=== PATIENT | female | born 1960 | race Caucasian/White ===

== ENCOUNTER 2020-11-02 22:04 | Inpatient (IN) | payer MEDICAID ==
[~2020-11-02] VITALS: Ht 165.1 cm; Wt 68.9 kg
[~2020-11-02 22:04] MED LIST: LEVE100020 PO; QUET25TA5 PO
[2020-11-02] MEDS ORDERED: ONDANSETRON ODT 4 MG PO PRN (23:00)
[2020-11-02] MEDS ORDERED: POLYETHYLENE GLYCOL 17 GM PACKET PO PRN (23:00)
[2020-11-02] MEDS ORDERED: ACETAMINOPHEN 325 MG TABLET PO PRN (23:00)
[2020-11-02] MEDS ORDERED: BISACODYL 10 MG SUPP PR PRN (23:00)
[2020-11-02] MEDS ORDERED: DOCUSATE 100 MG CAPSULE PO PRN (23:00)
[2020-11-03 01:00] VITALS: BP 130/79
[2020-11-03 01:28] VITALS: BP 130/79
[2020-11-03] MEDS ORDERED: PLEASE ENTER HEIGHT AND WEIGHT MC SCH (01:30)
[2020-11-03] MEDS ORDERED: QUETIAPINE 200 MG TABLET PO ONE (02:00)
[2020-11-03] MEDS ORDERED: NICOTINE 21 MG/24 HR PATCH.TD24 TD SCH (04:00)
[2020-11-03] MEDS ORDERED: QUET200T4 PO (04:36)
[2020-11-03] MEDS ORDERED: LORA-446 PO (04:36)
[2020-11-03] MEDS ORDERED: BUPR1FIL PO (04:36)
[2020-11-03] MEDS ORDERED: QUET400T4 PO (04:36)
[2020-11-03] MEDS ORDERED: ALPR1TAB2 PO (04:36)
[2020-11-03 06:07] LABS: CHOL/HDL RATIO 2.6; FREE T4 (FREE THYROXINE) 0.72 ng/dL (0.76-1.46); LDL/HDL RATIO 1.3 (0.5-3.0)
[2020-11-03 07:35] VITALS: BP 135/87
[2020-11-03] MEDS: LORazepam 1MG TABLET PO PRN (08:43)
[2020-11-03] MEDS: NICOTINE 21 MG/24 HR PATCH.TD24 TD SCH (08:43)
[2020-11-03] MEDS: QUETIAPINE 100MG TABLET PO SCH ×2 (08:43→20:54)
[2020-11-03] MEDS: FOLIC ACID 1 MG TABLET PO SCH (08:43)
[2020-11-03] MEDS: THIAMINE 100MG TABLET PO SCH (08:43)
[2020-11-03] MEDS: BUPRENORPHINE/NALOXONE 2-0.5MG SL PRN (15:57)
[2020-11-03 19:39] VITALS: BP 143/88
[2020-11-03] MEDS: PRAZOSIN 1 MG CAPSULE PO SCH (20:56)
[2020-11-03] MEDS ORDERED: QUETIAPINE 100MG TABLET PO SCH (21:00)
[2020-11-03] MEDS ORDERED: PRAZOSIN 2 MG CAPSULE PO SCH (21:00)
[2020-11-04 07:15] VITALS: BP 146/98
[2020-11-04] MEDS: NICOTINE 21 MG/24 HR PATCH.TD24 TD SCH (08:16)
[2020-11-04] MEDS: THIAMINE 100MG TABLET PO SCH (08:17)
[2020-11-04] MEDS: SERTRALINE 50MG TABLET PO SCH (08:17)
[2020-11-04] MEDS: LORazepam 1MG TABLET PO PRN ×3 (08:17→20:41)
[2020-11-04] MEDS: QUETIAPINE 100MG TABLET PO SCH ×2 (08:17→20:40)
[2020-11-04] MEDS: FOLIC ACID 1 MG TABLET PO SCH (08:17)
[2020-11-04] MEDS: BUPRENORPHINE/NALOXONE 2-0.5MG SL PRN ×2 (11:14→20:41)
[2020-11-04 18:15] VITALS: BP 152/95
[2020-11-04] MEDS: PRAZOSIN 1 MG CAPSULE PO SCH (20:41)
[2020-11-05] MEDS: LORazepam 1MG TABLET PO PRN ×3 (05:34→20:26)
[2020-11-05 07:43] VITALS: BP 152/89
[2020-11-05] MEDS: THIAMINE 100MG TABLET PO SCH (09:09)
[2020-11-05] MEDS: BUPRENORPHINE/NALOXONE 2-0.5MG SL PRN ×2 (09:09→20:26)
[2020-11-05] MEDS: SERTRALINE 50MG TABLET PO SCH (09:09)
[2020-11-05] MEDS: FOLIC ACID 1 MG TABLET PO SCH (09:09)
[2020-11-05] MEDS: QUETIAPINE 100MG TABLET PO SCH ×2 (09:09→20:25)
[2020-11-05] MEDS: NICOTINE 21 MG/24 HR PATCH.TD24 TD SCH (09:10)
[2020-11-05 16:02] LABS: ANA SCREEN NEGATIVE (Negative)
[2020-11-05 19:38] VITALS: BP 138/85
[2020-11-05] MEDS: PRAZOSIN 1 MG CAPSULE PO SCH (20:23)
[2020-11-06 07:19] LABS: ALANINE AMINOTRANSFERASE 93 U/L (12-78); ALBUMIN 3.2 g/dL (3.4-5.0); ANION GAP 3 mmol/L (5-15); CALCIUM 8.8 mg/dL (8.5-10.1); CHLORIDE 109 mmol/L (98-107); CREATININE 0.51 mg/dL (0.55-1.02)
[2020-11-06 07:21] LABS: ALKALINE PHOSPHATASE 75 U/L (45-117); TOTAL PROTEIN 6.8 g/dL (6.4-8.2)
[2020-11-06 07:22] LABS: BASOPHILS % (AUTO) 1 % (0-1); EOSINOPHILS % (AUTO) 6 % (1-7); LYMPHOCYTES % (AUTO) 42 % (22-44); MEAN CORPUSCULAR HEMOGLOBIN 30.1 pg (27.0-34.8); MEAN CORPUSCULAR HGB CONC 34.1 g/dL (32.4-35.8); MEAN PLATELET VOLUME 8.7 fL (7.4-10.4); MONOCYTES % (AUTO) 7 % (2-9); NEUTROPHILS % (AUTO) 45 % (42-75); PLATELET COUNT 89 x10^3/uL (130-400); RED BLOOD COUNT 4.58 x10^6/uL (3.82-5.3); RED CELL DISTRIBUTION WIDTH 13.1 % (9.6-15.2)
[2020-11-06 07:23] LABS: MD NO
[2020-11-06 07:57] VITALS: BP 143/82
[2020-11-06] MEDS: BUPRENORPHINE/NALOXONE 2-0.5MG SL PRN ×2 (08:19→20:25)
[2020-11-06] MEDS: NICOTINE 21 MG/24 HR PATCH.TD24 TD SCH (08:19)
[2020-11-06] MEDS: LORazepam 1MG TABLET PO PRN ×3 (08:19→23:02)
[2020-11-06] MEDS: SERTRALINE 50MG TABLET PO SCH (08:20)
[2020-11-06] MEDS: FOLIC ACID 1 MG TABLET PO SCH (08:20)
[2020-11-06] MEDS: THIAMINE 100MG TABLET PO SCH (08:20)
[2020-11-06] MEDS: QUETIAPINE 100MG TABLET PO SCH ×2 (08:20→20:26)
[2020-11-06 19:30] VITALS: BP 150/95
[2020-11-06] MEDS: PRAZOSIN 1 MG CAPSULE PO SCH (20:25)
[2020-11-07 08:00] VITALS: BP 137/79
[2020-11-07] MEDS: THIAMINE 100MG TABLET PO SCH (08:31)
[2020-11-07] MEDS: NICOTINE 21 MG/24 HR PATCH.TD24 TD SCH (08:31)
[2020-11-07] MEDS: BUPRENORPHINE/NALOXONE 2-0.5MG SL PRN ×2 (08:31→20:07)
[2020-11-07] MEDS: SERTRALINE 50MG TABLET PO SCH (08:31)
[2020-11-07] MEDS: QUETIAPINE 100MG TABLET PO SCH ×2 (08:31→20:07)
[2020-11-07] MEDS: FOLIC ACID 1 MG TABLET PO SCH (08:31)
[2020-11-07] MEDS: LORazepam 1MG TABLET PO PRN ×2 (13:30→21:07)
[2020-11-07 19:54] VITALS: BP 150/92
[2020-11-07] MEDS: PRAZOSIN 1 MG CAPSULE PO SCH (20:07)
[2020-11-08 07:45] VITALS: BP 124/82
[2020-11-08] MEDS: LORazepam 1MG TABLET PO PRN (08:32)
[2020-11-08] MEDS: FOLIC ACID 1 MG TABLET PO SCH (08:32)
[2020-11-08] MEDS: THIAMINE 100MG TABLET PO SCH (08:32)
[2020-11-08] MEDS: NICOTINE 21 MG/24 HR PATCH.TD24 TD SCH (08:32)
[2020-11-08] MEDS: QUETIAPINE 100MG TABLET PO SCH (08:32)
[2020-11-08] MEDS: SERTRALINE 50MG TABLET PO SCH (08:33)
[2020-11-08] MEDS: BUPRENORPHINE/NALOXONE 2-0.5MG SL PRN (09:39)
[2020-11-08] MEDS ORDERED: NICO-587 TD (13:46)
[2020-11-08] MEDS ORDERED: QUET100T PO ×2 (13:46)
[2020-11-08] MEDS ORDERED: SERT50TA28 PO (13:46)
[2020-11-08] MEDS ORDERED: PRAZ1CAP2 PO (13:46)
== END 2020-11-08 14:10 | disposition home or self-care (01) | DRG 753 ==
LOC: 3E 11-03 00:47
PROVIDERS: ADMIT Psychiatry & Neurology Psychosomatic Medicine; ATTEND Psychiatry & Neurology Psychosomatic Medicine
DX: F31.30 Bipolar disorder, current episode depressed, mild or moderate severity, unspecified (principal); G40.909 Epilepsy, unspecified, not intractable, without status epilepticus; G47.00 Insomnia, unspecified; F60.3 Borderline personality disorder; L40.9 Psoriasis, unspecified; R45.851 Suicidal ideations; F43.10 Post-traumatic stress disorder, unspecified; F11.20 Opioid dependence, uncomplicated; E87.1 Hypo-osmolality and hyponatremia; D72.819 Decreased white blood cell count, unspecified; F10.20 Alcohol dependence, uncomplicated; F17.200 Nicotine dependence, unspecified, uncomplicated; G89.29 Other chronic pain; M54.9 Dorsalgia, unspecified; F41.1 Generalized anxiety disorder; F10.229 Alcohol dependence with intoxication, unspecified; F17.210 Nicotine dependence, cigarettes, uncomplicated; F12.20 Cannabis dependence, uncomplicated; Y90.4 Blood alcohol level of 80-99 mg/100 ml; Z79.899 Other long term (current) drug therapy; Z90.710 Acquired absence of both cervix and uterus; Z88.5 Allergy status to narcotic agent; Z71.6 Tobacco abuse counseling
CPT/HCPCS: J0572 ×6; 36415; 71045; 76700; 80053; 80061; 82140; 84439; 84443; 85025; 86038; 86430; 86431; 93306; 93356; Q0162

== ENCOUNTER 2020-11-23 20:39 | Emergency (ER) | payer MEDICAID ==
[~2020-11-23] VITALS: Ht 165.1 cm; Wt 65.9 kg
[~2020-11-23 20:39] MED LIST changes: +ALPR1TAB2 PO; +BUPR1FIL PO; +LORA-446 PO; +NICO-587 TD; +PRAZ1CAP2 PO; +QUET100T PO; +QUET200T4 PO; +QUET400T4 PO; +SERT50TA28 PO
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
[2020-11-23 21:21] LABS: AMPHETAMINE SCREEN, URINE Negative (Negative); BARBITURATE SCREEN, URINE Negative (Negative); BENZODIAZEPINE SCREEN, URINE Positive (Negative); CANNABINOID SCREEN, URINE Positive (Negative); COCAINE SCREEN, URINE Negative (Negative); METHADONE SCREEN, URINE Negative (Negative); OPIATE SCREEN, URINE Negative (Negative)
[2020-11-23 21:24] LABS: BASOPHILS % (AUTO) 1 % (0-1); EOSINOPHILS % (AUTO) 6 % (1-7); LYMPHOCYTES % (AUTO) 41 % (22-44); MEAN CORPUSCULAR HEMOGLOBIN 30.5 pg (27.0-34.8); MEAN CORPUSCULAR HGB CONC 33.9 g/dL (32.4-35.8); MEAN PLATELET VOLUME 9.4 fL (7.4-10.4); MONOCYTES % (AUTO) 7 % (2-9); NEUTROPHILS % (AUTO) 45 % (42-75); PLATELET COUNT 102 x10^3/uL (130-400); RED BLOOD COUNT 4.44 x10^6/uL (3.82-5.3); RED CELL DISTRIBUTION WIDTH 14.3 % (9.6-15.2)
[2020-11-23 21:25] LABS: MD NO
[2020-11-23 21:36] LABS: ALANINE AMINOTRANSFERASE 95 U/L (12-78); ALBUMIN 3.5 g/dL (3.4-5.0); ANION GAP 7 mmol/L (5-15); CALCIUM 8.5 mg/dL (8.5-10.1); CHLORIDE 112 mmol/L (98-107)
[2020-11-23 21:39] LABS: ALKALINE PHOSPHATASE 79 U/L (45-117); BILIRUBIN,TOTAL 0.7 mg/dL (0.2-1.0); CREATININE 0.61 mg/dL (0.55-1.02); TOTAL PROTEIN 7.3 g/dL (6.4-8.2)
--- NOTE | 2020-11-23 21:40 | NUR ---
pt resting in [facility], no needs at this time. labs pending, in line of sight of nolanter
--- NOTE | 2020-11-23 23:01 | NUR ---
pt sleeping in gurney, resp even/unlabored, in line of sight of sitter. awaiting tele psych
--- NOTE | 2020-11-24 00:21 | NUR ---
PT RESTING IN GURNEY, RESP EVEN/UNLABORED, TELE PSYCH MONITOR AT BEDSIDE. AWAITING CONSULT. IN LINE OF SIGHT OF SITTER
--- NOTE | 2020-11-24 01:09 | NUR ---
CHRIS FROM [facility] CALLED TO LET THIS RN KNOW THAT MD IS NOT AVAILABLE AT THIS TIME AND NO ETA AT THIS TIME. PT RESTING COMFORTABLY IN [place], NO NEEDS AT THIS TIME. IN LINE OF SIGHT OF AKSHAT
--- NOTE | 2020-11-24 02:42 | NUR ---
pt sleeping in gurney, resp even/unlabored, awaiting psych eval still. no updates on when
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
[2020-11-24 04:14] VITALS: BP 136/92
== END 2020-11-24 05:11 | disposition home or self-care (01) ==
LOC: ED 11-24 01:35
DX: F31.9 Bipolar disorder, unspecified (principal); F41.1 Generalized anxiety disorder; Z87.891 Personal history of nicotine dependence
CPT/HCPCS: 36415; 80053; 80299; 80307; 80320; 80329; 85025; 99283; G0480